=== PATIENT | male | born 1965 | race Caucasian/White ===

== ENCOUNTER 2018-12-08 18:05 | Inpatient (IN) | payer MEDICAID ==
[~2018-12-08] VITALS: Ht 181.6 cm; Wt 82.6 kg
[~2018-12-08 18:05] MED LIST: IBUP-2213 PO
[2018-12-08 18:24] VITALS: BP 144/78
--- NOTE | 2018-12-08 18:26 | NUR ---
PT TO [facility]. VSS. [id number].
[2018-12-08 20:08] LABS: BASOPHILS % (AUTO) 0.3 % (0.0-2.0); EOSINOPHILS # (AUTO) 0.1 K/uL (0-0.4); EOSINOPHILS % (AUTO) 0.6 % (0.0-4.0); HEMATOCRIT 45.5 % (36-52); HEMOGLOBIN 15.7 g/dL (12.0-18.0); LYMPHOCYTES # (AUTO) 1.3 K/uL (2.0-11.5); MEAN CORPUSCULAR HEMOGLOBIN 31 pg (27-31); MEAN CORPUSCULAR HGB CONC 35 g/dL (33-37); MEAN CORPUSCULAR VOLUME 90.2 fL (80-94); MONOCYTES % (AUTO) 8.5 % (1.7-9.3); NEUTROPHILS # (AUTO) 9.4 K/uL (1.8-7.7); NEUTROPHILS % (AUTO) 79.6 % (42.2-75.2); PLATELET COUNT (AUTO) 328 K/uL (140-450); RED BLOOD CELL COUNT(AUTO) 5.04 MIL/uL (4.20-6.10); RED CELL DISTRIBUTION WIDTH 13.1 % (11.6-13.7); WHITE BLOOD COUNT (AUTO) 11.8 K/uL (4.8-10.8)
[2018-12-08 20:09] LABS: APPEARANCE,URINE HAZY (CLEAR); BILIRUBIN,URINE NEGATIVE (NEGATIVE); BLOOD, URINE NEGATIVE (NEGATIVE); COLOR,URINE YELLOW (YELLOW); LEUKOCYTE ESTERASE ,URINE NEGATIVE (NEGATIVE); NITRITE, URINE NEGATIVE (NEGATIVE); UGLUCOSE NEGATIVE (NEGATIVE)
[2018-12-08 20:49] LABS: ANION GAP 12.2 (8-16); CARBON DIOXIDE 28.2 mmol/L (21-32); POTASSIUM 4.4 mmol/L (3.5-5.1)
[2018-12-08 20:50] LABS: CREATININE 0.9 mg/dL (0.7-1.3); TOTAL BILIRUBIN 0.6 mg/dL (0.0-1.0)
--- NOTE | 2018-12-08 23:09 | NUR ---
PT AMBULATED TO BED 04 WITH STEADY GAIT. SON ACCOMPANYING.
[2018-12-08] MEDS ORDERED: MORPHINE SULFATE 4 MG/ML SYR IVP ONE (23:35)
[2018-12-08] MEDS ORDERED: ONDANSETRON 4 MG/2 ML VIAL IVP ONE (23:35)
[2018-12-08] MEDS ORDERED: PIPERACILLIN/TAZOBACTAM 4.5 GM in DEXTROSE 5% 100 ML IV ONE (23:35)
[2018-12-08] MEDS ORDERED: NACL 0.9% 1,000 ML IV ONE (23:35)
[2018-12-08] MEDS ORDERED: DEXT 5% / NACL 0.45% 1,000 ML IV SCH (23:41)
[2018-12-08] MEDS ORDERED: DOCUSATE SODIUM 100 MG GELCAP PO PRN (23:45)
[2018-12-08] MEDS ORDERED: ONDANSETRON 4 MG/2 ML VIAL IM/IVP PRN (23:45)
[2018-12-08] MEDS ORDERED: LORazepam 2 MG/ML VIAL IM/IVP PRN (23:45)
[2018-12-08] MEDS ORDERED: FAMOTIDINE 20 MG/2 ML VIAL IV PRN (23:45)
--- NOTE | 2018-12-08 23:53 | NUR ---
53 Y/O MALE C/O EPIGASTRIC PAIN RADIATING TO RIGHT SIDE OF BACK X TUESDAY. PAIN 11/25. DENIES DYSURIA. PATIETN STATES PAIN INCREASES AFTER EATING. PMH- DENIES
[2018-12-09] MEDS ORDERED: PIPERACILLIN/TAZOBACTAM 2.25 GM VIAL IV ONE (00:18)
[2018-12-09] MEDS ORDERED: DEXT 5% / NACL 0.9% 500 ML IV SCH (00:25)
[2018-12-09 00:51] LABS: PROTHROMBIN TIME 10.3 secs (10.8-13.4)
[2018-12-09 00:58] LABS: CHOL/HDL RATIO 4.1 (1-4.5); FREE T4 (FREE THYROXINE) 1.01 ng/dL (0.76-1.46); MAGNESIUM 2.7 mg/dL (1.8-2.4); PHOSPHORUS 3.3 mg/dL (2.5-4.9); THYROID STIMULATING HORMONE 0.64 uIU/mL (0.34-3.74)
--- NOTE | 2018-12-09 01:05 | NUR ---
Patient will be admitted to care of [facility]. Admited to TELE. Will go to room 119 A. Belongings list completed. Report to DANIEL FAM.
[2018-12-09 01:30] VITALS: BP 120/82
--- NOTE | 2018-12-09 01:30 | NUR ---
RECIEVED PT AAOX4 /WHEELCHAIR FROM ER , NID , IV SITE INTACT AND PATENT , AMBULATES TO BED , ADMISSION ASSESSMENT DODE , MRSA SPECIMEN COLLECTED AND SENT TO LAB . PUT ON SAFETY PRECAUTION PROTOCOL . PLAN OF CARE DISCUSSED AND VERBALIZE UNDERSTANDING , CALL LIGHT WITHIN REACH , WILL CONT. TO MONITOR - ON NPO .
[2018-12-09 04:00] VITALS: BP 120/74
--- NOTE | 2018-12-09 04:00 | NUR ---
MADE ROUNDS , BEARABLE PAIN HE SAID AT THIS TIME , CALL LIGHT WITHIN REACH , WILL CO0NT. TO MONITOR.
[2018-12-09] MEDS: DEXT 5% / NACL 0.9% 1,000 ML IV SCH (04:19)
[2018-12-09] MEDS ORDERED: PIPERACILLIN/TAZOBACTAM 3.375 GM VIAL IV ONE (05:28)
[2018-12-09] MEDS: PIPERACILLIN/TAZOBACTAM 3.375 GM in DEXTROSE 5% 50 ML IV SCH ×3 (05:33→17:48)
--- NOTE | 2018-12-09 06:03 | NUR ---
C/O PAIN - WILL MEDICATE ORDERED.
[2018-12-09] MEDS: HYDROcodone/APAP 7.5/325 MG 1 TAB PO PRN (06:05)
[2018-12-09 06:19] LABS: BARBITURATE, URINE NEG. ng/ml (NEG <=200); BENZODIAZEPINE, URINE NEG. ng/mL (NEG <=200); CANNABINOID, URINE NEG. ng/mL (NEG <=50); COCAINE, URINE NEG. ng/mL (NEG <=300); OPIATE, URINE NEG. ng/mL (NEG <=2000); PHENCYCLIDINE SCREEN,URINE NEG. ng/mL (NEG <=25)
--- NOTE | 2018-12-09 07:15 | NUR ---
RECEIVED BEDSIDE REPORT FROM TEST ENGINE MECHANIC NURSE. PT IS AWAKE AND ALERT, NO S/S OF ANY ACUTE DISTRESS NOTED. PT IS ON ROOM AIR, SKIN INTACT. IV SITE NOTED ON THE R AC 20 G, INFUSING D5NS 100 ML/HR. PT IS CURRENTLY NPO FOR HIDA SCAN. CALL LIGHT IS WITHIN REACH, WILL CONTINUE TO MONITOR.
--- NOTE | 2018-12-09 07:25 | NUR ---
THE TECH. WHO WILL DO THE HIDA OF GALLBLADDER CALLED VIA PHONE HE SAID PUT PT. ON TOTALLY NPO AND DON'T GIVE ANY KIND OF OPIATES , GIVE THE THE MORPHINE TIV PRN FOR PAIN 2HRS POST HIDA WAIT MY CALL FIRST. - THE AM NURSE INFORMED AND THE LIZET INFORMED.ENDORSED TO AM NURSE FOR CONT. OF CARE.
[2018-12-09 07:45] LABS: BASOPHILS % (AUTO) 0.2 % (0.0-2.0); EOSINOPHILS # (AUTO) 0.1 K/uL (0-0.4); HEMATOCRIT 40.4 % (36-52); LYMPHOCYTES # (AUTO) 1.3 K/uL (2.0-11.5); LYMPHOCYTES % (AUTO) 12.4 % (20.5-51.1); MEAN CORPUSCULAR HEMOGLOBIN 31 pg (27-31); MEAN CORPUSCULAR HGB CONC 35 g/dL (33-37); MEAN CORPUSCULAR VOLUME 90.9 fL (80-94); MONOCYTES # (AUTO) 1.1 K/uL (0.8-1.0); MONOCYTES % (AUTO) 10.5 % (1.7-9.3); NEUTROPHILS # (AUTO) 7.9 K/uL (1.8-7.7); NEUTROPHILS % (AUTO) 75.9 % (42.2-75.2); PLATELET COUNT (AUTO) 284 K/uL (140-450); RED BLOOD CELL COUNT(AUTO) 4.44 MIL/uL (4.20-6.10); RED CELL DISTRIBUTION WIDTH 12.8 % (11.6-13.7); WHITE BLOOD COUNT (AUTO) 10.4 K/uL (4.8-10.8)
[2018-12-09 08:00] VITALS: BP 111/61
[2018-12-09 08:21] LABS: CREATININE 0.9 mg/dL (0.7-1.3)
[2018-12-09] MEDS: LACTOBACILLUS RHAMNOSUS GG 1 EACH CAP PO SCH (08:53)
--- NOTE | 2018-12-09 09:35 | NUR ---
PT IS SLEEPING COMFORTABLY, NO S/S OF ANY ACUTE DISTRESS.
[2018-12-09 12:00] VITALS: BP 119/72
--- NOTE | 2018-12-09 12:20 | NUR ---
PT TAKEN OFF UNIT FOR HIDA SCAN
--- NOTE | 2018-12-09 13:17 | NUR ---
GOT A CALL FROM NUCLEAR MEDICINE, PT NEEDS 2 MG MORPHINE IV INJECTION TO VISUALIZE THE GALLBLADDER ON HIDA SCAN. DR GAMBOA NOTIFIED
--- NOTE | 2018-12-09 13:30 | NUR ---
PT WAS GIVEN 2 MG MORPHINE IV FOR HIDA SCAN
--- NOTE | 2018-12-09 14:14 | NUR ---
PATIENT HAS BEEN SCREENED AND CATEGORIZED HIGH NUTRITION RISK. PATIENT WILL BE SEEN WITHIN 1-2 DAYS OF ADMISSION. 12/09/18 - 12/10/18 ADAMARIS STEVENSON MBA, RD
--- NOTE | 2018-12-09 14:39 | NUR ---
PT IS BACK FROM HIDA SCAN
--- NOTE | 2018-12-09 14:50 | NUR ---
CONSENT OBTAINED FOR LAPAROSCOPIC POSSIBLE OPEN CHOLECYSTECTOMY. PT'S FAMILY VISITING AT BEDSIDE.
[2018-12-09] MEDS ORDERED: MORPHINE SULFATE 2 MG/ML SYR IVP SCH (15:01)
[2018-12-09 16:00] VITALS: BP 139/78
--- NOTE | 2018-12-09 17:30 | NUR ---
12/09/18 RD INITIAL ASSESSMENT COMPLETED PLEASE REFER TO NUTRITION ASSESSMENT UNDER CARE ACTIVITY FOR ESTIMATED NUTRITIONAL NEEDS. RD RECOMMENDATIONS: 1. RECOMMEND CONTINUE NPO. 2. WHEN MEDICALLY CLEARED FOR PO DIET, START REGULAR DIET. 3. RD MPNITOR BLOOD GLUCOSE LEVELS / ? NEED FOR CCHO DIET 4. F/U 3-5 DAYS; MODERATE RISK ADAMARIS STEVENSON MBA, RD
[2018-12-09] MEDS: MORPHINE SULFATE 2 MG/ML SYR IVP PRN ×2 (17:49→20:28)
--- NOTE | 2018-12-09 19:20 | NUR ---
PT ENDORSED TO CABINET MOUNTER NURSE IN STABLE CONDITION.
--- NOTE | 2018-12-09 19:21 | NUR ---
RECEIVED BEDSIDE REPORT FROM AM NURSE. PT IS AWAKE AND ALERT, NO S/S OF ANY ACUTE DISTRESS NOTED. PT AMBULATORY, SKIN INTACT. IV SITE NOTED ON THE R AC 20 G, INFUSING D5NS 100 ML/HR. PT IS CURRENTLY NPO. CALL LIGHT IS WITHIN REACH, WILL CONTINUE TO MONITOR.
[2018-12-09 20:00] VITALS: BP 129/79
--- NOTE | 2018-12-09 20:00 | NUR ---
DR. MAR AT BEDSIDE, INTERVIEWED PT, AND EXPLAINED THE OPERATION TO BE DONE. ANOTHER CONSENT OBTAINED DONE BY DR. MAR.
--- NOTE | 2018-12-09 20:28 | NUR ---
PT C/O 9/10 PAIN ON THE RIGHT ABDOMINAL AREA, MORPHINE GIVEN
[2018-12-10] VITALS: BP 110/56
[2018-12-10] MEDS: PIPERACILLIN/TAZOBACTAM 3.375 GM in DEXTROSE 5% 50 ML IV SCH ×4 (00:26→18:20)
[2018-12-10] MEDS: MORPHINE SULFATE 2 MG/ML SYR IVP PRN ×3 (00:45→19:44)
--- NOTE | 2018-12-10 00:45 | NUR ---
PT AGAIN C/O 9/10 PAIN ON THE RIGHT ABDOMINAL AREA, MORPHINE GIVEN
--- NOTE | 2018-12-10 02:57 | NUR ---
PT SLEEPING AT THIS TIME. SIGNS AND SYMPTOMS OF PAIN, WILL CONTINUE TO MONITOR
[2018-12-10 03:45] VITALS: BP 133/74
--- NOTE | 2018-12-10 06:46 | NUR ---
PT ALERT, ORIENTED X 4; AMBULATORY; PT AWAITING OR TO PISCK HIM FOR CHOLECYSTECTOMY AT 0830; PRE-OP DONE, WILL ENDORSE TO NEXT SHIFT
--- NOTE | 2018-12-10 07:15 | NUR ---
RECEIVED BEDSIDE REPORT FROM CRYPTOGRAPHY TEACHER NURSE. PT IS AWAKE AND ALERT, NO S/S OF ANY ACUTE DISTRESS. PT ON ROOM AIR, SKIN INTACT. IV SITE INTACT ON THE R AC, 20 G, CURRENTLY SALINE LOCKED. PT IS SCHEDULED FOR CHOLECYSTECTOMY THIS MORNING, CONSENT HAS BEEN OBTAINED AND PREOP CHECKLIST WAS DONE. PT IS NPO FOR THE PROCEDURE. CALL LIGHT IS WITHIN REACH, WILL CONTINUE TO MONITOR.
[2018-12-10 07:51] VITALS: BP 135/79
[2018-12-10] MEDS: LACTOBACILLUS RHAMNOSUS GG 1 EACH CAP PO SCH (08:00)
--- NOTE | 2018-12-10 08:05 | NUR ---
ADMINISTERED ORDERED PROBIOTIC. PT TOLERATED WELL. WAITING FOR OR TO EXPLOSIVE MAN PT.
[2018-12-10 08:07] LABS: BASOPHILS % (AUTO) 0.5 % (0.0-2.0); EOSINOPHILS # (AUTO) 0.1 K/uL (0-0.4); EOSINOPHILS % (AUTO) 1.4 % (0.0-4.0); HEMATOCRIT 41.6 % (36-52); HEMOGLOBIN 14.1 g/dL (12.0-18.0); LYMPHOCYTES # (AUTO) 1.6 K/uL (2.0-11.5); LYMPHOCYTES % (AUTO) 17.7 % (20.5-51.1); MEAN CORPUSCULAR HEMOGLOBIN 31 pg (27-31); MEAN CORPUSCULAR HGB CONC 34 g/dL (33-37); MEAN CORPUSCULAR VOLUME 91.1 fL (80-94); MONOCYTES % (AUTO) 10.9 % (1.7-9.3); NEUTROPHILS # (AUTO) 6.1 K/uL (1.8-7.7); NEUTROPHILS % (AUTO) 69.5 % (42.2-75.2); PLATELET COUNT (AUTO) 295 K/uL (140-450); RED BLOOD CELL COUNT(AUTO) 4.57 MIL/uL (4.20-6.10); RED CELL DISTRIBUTION WIDTH 12.5 % (11.6-13.7); WHITE BLOOD COUNT (AUTO) 8.8 K/uL (4.8-10.8)
--- NOTE | 2018-12-10 08:30 | NUR ---
PT TAKEN OFF UNIT FOR SURGERY
[2018-12-10 08:35] LABS: ANION GAP 14.1 (8-16); CARBON DIOXIDE 26.2 mmol/L (21-32); CREATININE 0.8 mg/dL (0.7-1.3); POTASSIUM 4.3 mmol/L (3.5-5.1)
[2018-12-10] MEDS ORDERED: NEOSTIGMINE 1:1000 10 MG/10 ML VIAL ONE (08:35)
[2018-12-10] MEDS ORDERED: ROCURONIUM 50 MG/5 ML VIAL IV ONE (08:35)
[2018-12-10] MEDS ORDERED: ONDANSETRON 4 MG/2 ML VIAL ONE (08:35)
[2018-12-10] MEDS ORDERED: LABETALOL 100 MG/20 ML VIAL ONE (08:35)
[2018-12-10] MEDS ORDERED: DESFLURANE 240 ML BTL INH ONE (08:35)
[2018-12-10] MEDS ORDERED: SUCCINYLCHOLINE CHLORIDE 200 MG/10 ML VIAL IVP ONE (08:35)
[2018-12-10] MEDS ORDERED: PROPOFOL 200 MG/20 ML VIAL IV ONE (08:35)
[2018-12-10] MEDS ORDERED: KETOROLAC 30 MG/ML VIAL ONE (08:35)
[2018-12-10] MEDS ORDERED: GLYCOPYRROLATE 0.2 MG/ML VIAL ONE (08:35)
[2018-12-10] MEDS ORDERED: DEXAMETHASONE 4 MG/ML VIAL ONE (08:35)
[2018-12-10] MEDS ORDERED: HYDROmorphone PFS 2 MG/ML SYR ONE (08:49)
[2018-12-10] MEDS ORDERED: fentaNYL 0.05 MG/ML VIAL ONE (08:49)
[2018-12-10] MEDS: BUPIVACAINE-MPF 0.25% 30 ML VIAL INJ ONE ×2 (09:15→11:15)
[2018-12-10] MEDS: DEXT 5% / NACL 0.9% 1,000 ML IV SCH (10:25)
[2018-12-10] MEDS ORDERED: ONDANSETRON 4 MG/2 ML VIAL IVP PRN (11:05)
[2018-12-10] MEDS ORDERED: HYDROmorphone 1 MG/ML AMP IVP PRN (11:05)
[2018-12-10 11:35] LABS: ANION GAP 13.1 (8-16); CARBON DIOXIDE 25.4 mmol/L (21-32); CREATININE 0.8 mg/dL (0.7-1.3); POTASSIUM 4.5 mmol/L (3.5-5.1)
[2018-12-10 11:40] LABS: BASOPHILS % (AUTO) 0.1 % (0.0-2.0); EOSINOPHILS % (AUTO) 0.3 % (0.0-4.0); HEMOGLOBIN 13.7 g/dL (12.0-18.0); LYMPHOCYTES # (AUTO) 0.9 K/uL (2.0-11.5); LYMPHOCYTES % (AUTO) 6.8 % (20.5-51.1); MEAN CORPUSCULAR HEMOGLOBIN 31 pg (27-31); MEAN CORPUSCULAR HGB CONC 34 g/dL (33-37); MONOCYTES # (AUTO) 0.3 K/uL (0.8-1.0); MONOCYTES % (AUTO) 2.5 % (1.7-9.3); NEUTROPHILS % (AUTO) 90.3 % (42.2-75.2); PLATELET COUNT (AUTO) 297 K/uL (140-450); RED CELL DISTRIBUTION WIDTH 12.9 % (11.6-13.7); WHITE BLOOD COUNT (AUTO) 13.3 K/uL (4.8-10.8)
[2018-12-10 11:42] LABS: TOTAL BILIRUBIN 0.7 mg/dL (0.0-1.0)
--- NOTE | 2018-12-10 11:51 | NUR ---
PT IS BACK FROM SURGERY Addendum: 12/10/18 at 1201 by Ene Corrales RN VS STABLE: BP 112/73, HR 62, O2 97%, TEMP 97.4, RR 18. FAMILY VISITING AT BEDSIDE.
[2018-12-10 12:00] VITALS: BP 112/73
--- NOTE | 2018-12-10 12:30 | NUR ---
PT ATE ABOUT 85% OF HIS CLEAR LIQUID LUNCH, TOLERATED IT WELL.
--- NOTE | 2018-12-10 12:32 | NUR ---
CALLED DR MAR TO REPORT LABS REQUESTED .
--- NOTE | 2018-12-10 13:30 | NUR ---
PT IS SLEEPING COMFORTABLY AT THIS TIME. 4 ABD INCISION DRESSINGS ARE DRY AND INTACT, LEELA DRAIN DRAINING PINK FLUID.
[2018-12-10] MEDS: NACL 0.9% 1,000 ML IV SCH (14:38)
--- NOTE | 2018-12-10 15:53 | NUR ---
FAMILY VISITING PT AT BEDSIDE.
[2018-12-10 16:00] VITALS: BP 116/65
--- NOTE | 2018-12-10 18:55 | NUR ---
EMPTIED 40 ML FROM PT'S LEELA DRAIN. PT GOT UP AND WALKED TO THE BATHROOM WITHOUT ISSUES. C/O PAIN WHEN GOT BACK INTO BED. WILL ENDORSE TO SHUTTLECOCK FEATHER TRIMMER NURSE TO GIVE PAIN MEDICINE.
--- NOTE | 2018-12-10 19:15 | NUR ---
PT ENDORSED TO CHRONOMETER REPAIRER NURSE IN STABLE CONDITION.
--- NOTE | 2018-12-10 19:16 | NUR ---
RECEIVED BEDSIDE REPORT FROM DAY SHIFT NURSE BONNIE RN, PT STABLE, NO DISTRESS NOTED, IV TO R AC 20G PATENT, INTACT INFUSING WELL, PT ON ROOM AIR , NO SOB NOTED, PT HAD JUST AMBULATED TO RESTROOM AND BACK TO BED ASSISTED BY FAMILY, PT STATED HAVING PAIN, /, WILL GIVE PAIN MEDICATION, DRESSINGS INTACT, LEELA DRAIN IN PLACE DRAINING SANGUINOUS FLUID, INITIAL ASSESSMENT DONE, ALL SAFETY PRECAUTION MET, CALL LIGHT WITHIN REACH, WILL CONTINUE TO MONITOR.
--- NOTE | 2018-12-10 19:44 | NUR ---
PAIN MEDICATION ADMINISTERED, FOR PAIN OF 10/10 TO THE ABD, PT TOLERATED WELL, NO DISTRESS NOTED, CALL LIGHT WITHIN REACH, WILL CONTINUE TO MONITOR.
--- NOTE | 2018-12-10 21:00 | NUR ---
HEPARIN DUE HELD, PT S/P LISA UNGER, NOTIFIED DR. MALACHI DR. STATED UNDERSTANDING, PT RESTING, NO DISTRESS NOTED, CALL LIGHT WITHIN REACH, WILL CONTINUE TO MONITOR.
[2018-12-11 00:05] VITALS: BP 127/69
[2018-12-11] MEDS: PIPERACILLIN/TAZOBACTAM 3.375 GM in DEXTROSE 5% 50 ML IV SCH ×4 (00:05→17:34)
[2018-12-11] MEDS: MORPHINE SULFATE 2 MG/ML SYR IVP PRN ×3 (00:05→20:40)
--- NOTE | 2018-12-11 00:05 | NUR ---
DUE MEDICATION ADMINISTERED, PT C/O PAIN, PAIN MEDICATION ORDERED ADMINISTERED, PT TOLERATED WELL, NO DISTRESS NOTED, CALL LIGHT WITHIN REACH, WILL CONTINUE TO MONITOR.
[2018-12-11] MEDS: ACETAMINOPHEN 325 MG TAB PO PRN ×2 (04:30→20:37)
--- NOTE | 2018-12-11 04:30 | NUR ---
PT C/O OF PAIN TO THE ABD, PAIN MEDICATION ADMINISTERED, PER PT MEDICATION MORPHINE DID NOT HELP HIS HEADACHE EARLIER AND PT REQUESTED OTHER MEDICATION, TYLENOL ORDERED ADMINISTERED, PT TOLERATED WELL, NO DISTRESS NOTED, CALL LIGHT WITHIN REACH, WILL CONTINUE TO MONITOR.
[2018-12-11] MEDS: NACL 0.9% 1,000 ML IV SCH ×2 (05:13→17:17)
--- NOTE | 2018-12-11 05:14 | NUR ---
DUE MEDICATION ADMINISTERED, PT TOLERATED WELL, NO DISTRESS NOTED, CALL LIGHT WITHIN REACH, WILL CONTINUE TO MONITOR.
[2018-12-11 06:38] LABS: ANION GAP 14.8 (8-16); CARBON DIOXIDE 25.3 mmol/L (21-32); CREATININE 0.9 mg/dL (0.7-1.3); POTASSIUM 4.1 mmol/L (3.5-5.1); TOTAL BILIRUBIN 1.2 mg/dL (0.0-1.0)
--- NOTE | 2018-12-11 07:23 | NUR ---
ENDORSED PT TO DAY SHIFT NURSE HUSSEIN SANCHEZ, PT STABLE, NO DISTRESS NOTED, CALL LIGHT WITHIN REACH.
--- NOTE | 2018-12-11 07:24 | NUR ---
RECEIVED REPORT FROM BINDERY ASSISTANT NURSE NITISH FOR CONTINUITY OF CARE. PT IN STABLE CONDITION. RESPIRATIONS EVEN AND UNLABORED. IV INTACT AND PATENT. SAFETY MEASURES IN PLACE. BED IN LOW POSITION. CALL LIGHT AT BEDSIDE. WILL CONTINUE TO MONITOR.
[2018-12-11 08:00] VITALS: BP 131/77
[2018-12-11] MEDS ORDERED: MORPHINE SULFATE 2 MG/ML SYR IVP PRN (08:30)
[2018-12-11] MEDS: DOCUSATE SODIUM 100 MG GELCAP PO SCH ×2 (08:43→20:37)
[2018-12-11] MEDS: LACTOBACILLUS RHAMNOSUS GG 1 EACH CAP PO SCH (08:43)
[2018-12-11 08:46] LABS: BASOPHILS % (AUTO) 0.2 % (0.0-2.0); EOSINOPHILS % (AUTO) 0.1 % (0.0-4.0); HEMATOCRIT 39.2 % (36-52); HEMOGLOBIN 13.5 g/dL (12.0-18.0); LYMPHOCYTES # (AUTO) 1.4 K/uL (2.0-11.5); LYMPHOCYTES % (AUTO) 10.6 % (20.5-51.1); MEAN CORPUSCULAR HEMOGLOBIN 32 pg (27-31); MEAN CORPUSCULAR HGB CONC 35 g/dL (33-37); MEAN CORPUSCULAR VOLUME 91.4 fL (80-94); MONOCYTES # (AUTO) 1.3 K/uL (0.8-1.0); MONOCYTES % (AUTO) 9.8 % (1.7-9.3); NEUTROPHILS # (AUTO) 10.2 K/uL (1.8-7.7); NEUTROPHILS % (AUTO) 79.3 % (42.2-75.2); PLATELET COUNT (AUTO) 308 K/uL (140-450); RED BLOOD CELL COUNT(AUTO) 4.29 MIL/uL (4.20-6.10); RED CELL DISTRIBUTION WIDTH 12.7 % (11.6-13.7); WHITE BLOOD COUNT (AUTO) 12.9 K/uL (4.8-10.8)
[2018-12-11] MEDS ORDERED: SIMETHICONE 80 MG TAB.CHEW PO SCH (09:00)
--- NOTE | 2018-12-11 09:05 | NUR ---
GAVE ORDERED DUE MEDICATION AND STAND BY ASSIST TO RESTROOM. PT TOLERATED WELL. PT IN STABLE CONDITION.
--- NOTE | 2018-12-11 11:02 | NUR ---
RAJNI LIMA CALLED TO INQUIRE PT LABS AND SPEAK TO RESIDENT COOPER CHONG.
--- NOTE | 2018-12-11 12:04 | NUR ---
PT LYING IN BED IN STABLE CONDITION. FAMILY AT BEDSIDE. WILL CONTINUE TO MONITOR. BED IN LOW POSITION. CALL LIGHT AT BEDSIDE.
[2018-12-11] MEDS: ALUMINUM HYD/MAG/SIMETHICONE 30 ML UDC PO SCH ×2 (12:33→17:33)
[2018-12-11] MEDS: SENNA 8.6 MG TAB PO SCH ×2 (12:33→17:18)
--- NOTE | 2018-12-11 14:25 | NUR ---
STAND BY ASSIST TO RESTROOM. PT TOLERATED WELL. WILL CONTINUE TO MONITOR. BED IN LOW POSITION. CALL LIGHT AT BEDSIDE.
--- NOTE | 2018-12-11 17:55 | NUR ---
SIGNED ERCP CONSENT AT THIS TIME.
--- NOTE | 2018-12-11 19:25 | NUR ---
GAVE REPORT TO CAR BODY MECHANIC NURSE GHULAM FOR CONTINUITY OF CARE. PT IN STABLE CONDITION.
--- NOTE | 2018-12-11 19:26 | NUR ---
RECEIVED BEDSIDE REPORT FROM DAY SHIFT NURSE HUSSEIN RN, FAMILY AT BEDSIDE. PT STABLE, NO DISTRESS NOTED, IV SITE ON RAC 20G PATENT, INTACT. BREATHING EVEN AND UNLABORED ON ROOM AIR PT STATED HAVING PAIN, 11/25, WILL GIVE PAIN MEDICATION, DRESSINGS INTACT, LEELA DRAIN IN PLACE DRAINING SANGUINOUS FLUID, INITIAL ASSESSMENT DONE, ALL SAFETY PRECAUTION MET, CALL LIGHT WITHIN REACH, WILL CONTINUE TO MONITOR.
--- NOTE | 2018-12-11 20:40 | NUR ---
GIVEN HEPARIN AND COLACE MD ORDERED. PT C/O INCISION PAIN 8/10, GIVEN MORPHINE AND TYLENOL MD ORDERED. PT TOLERATED WELL.
[2018-12-12] VITALS: BP 118/76
--- NOTE | 2018-12-12 00:05 | NUR ---
VS CHECKED, WITHIN PT'S BASELINE. WILL CONTINUE TO MONITOR.
[2018-12-12] MEDS: PIPERACILLIN/TAZOBACTAM 3.375 GM in DEXTROSE 5% 50 ML IV SCH ×4 (00:15→17:19)
--- NOTE | 2018-12-12 00:15 | NUR ---
GIVEN ZOSYN, PT TOLERATED WELL.
[2018-12-12] MEDS: NACL 0.9% 1,000 ML IV SCH ×3 (00:19→15:55)
[2018-12-12] MEDS: ACETAMINOPHEN 325 MG TAB PO PRN (02:32)
[2018-12-12] MEDS: MORPHINE SULFATE 2 MG/ML SYR IVP PRN ×3 (02:32→21:26)
--- NOTE | 2018-12-12 02:32 | NUR ---
PT C/O INCISION PAIN 11/25, GIVEN MORPHINE AND TYLENOL MD ORDERED. PT TOLERATED WELL.
--- NOTE | 2018-12-12 04:00 | NUR ---
PT SLEEPING IN BED. BREATHING EVEN AND UNLABORED. BED IN LOW POSITION, CALL LIGHT WITHIN REACH.
--- NOTE | 2018-12-12 05:45 | NUR ---
GIVEN CODY MCRAE. PT SLEEPING COMFORTABLY. BED IN LOW POSITION,. CALL LIGHT WITHIN REACH. Addendum: 12/12/18 at 0627 by Braulio Conrad RN LEELA DRAINAGE 30ML NOTED.
[2018-12-12 06:09] LABS: PROTHROMBIN TIME 11.6 secs (10.8-13.4)
[2018-12-12 06:27] LABS: CARBON DIOXIDE 26.8 mmol/L (21-32); CREATININE 0.8 mg/dL (0.7-1.3); POTASSIUM 3.8 mmol/L (3.5-5.1)
[2018-12-12 06:33] LABS: PHOSPHORUS 3.2 mg/dL (2.5-4.9)
[2018-12-12 07:22] LABS: BASOPHILS # (AUTO) 0.1 K/uL (0.00-0.22); BASOPHILS % (AUTO) 0.6 % (0.0-2.0); EOSINOPHILS # (AUTO) 0.2 K/uL (0-0.4); EOSINOPHILS % (AUTO) 1.9 % (0.0-4.0); HEMATOCRIT 38.2 % (36-52); HEMOGLOBIN 12.8 g/dL (12.0-18.0); LYMPHOCYTES # (AUTO) 1.5 K/uL (2.0-11.5); LYMPHOCYTES % (AUTO) 16.2 % (20.5-51.1); MEAN CORPUSCULAR HEMOGLOBIN 31 pg (27-31); MEAN CORPUSCULAR HGB CONC 34 g/dL (33-37); MEAN CORPUSCULAR VOLUME 92.6 fL (80-94); MONOCYTES # (AUTO) 0.9 K/uL (0.8-1.0); MONOCYTES % (AUTO) 10.1 % (1.7-9.3); NEUTROPHILS # (AUTO) 6.5 K/uL (1.8-7.7); NEUTROPHILS % (AUTO) 71.2 % (42.2-75.2); PLATELET COUNT (AUTO) 284 K/uL (140-450); RED BLOOD CELL COUNT(AUTO) 4.13 MIL/uL (4.20-6.10); RED CELL DISTRIBUTION WIDTH 12.7 % (11.6-13.7); WHITE BLOOD COUNT (AUTO) 9.2 K/uL (4.8-10.8)
--- NOTE | 2018-12-12 07:25 | NUR ---
RECEIVED REPORT FROM EARTH AUGER OPERATOR NURSE. PATIENT SITTING DOWN IN BED. NO DISTRESS NOTED. DENIES ANY PAIN. AAOX4, CALM, COOPERATIVE, SKIN COLOR APPROPRIATE TO ETHNICITY, WARM TO TOUCH. HAS 4 ABD INCISIONS S/P LAP CORNEL ON 12/11/18. DRESSING DRY AND INTACT. LEELA DRAIN ON RIGHT ABD SIDE, <5 ML SANGUINOUS DRAINAGE NOTED AT THIS TIME. REVIEWED PLAN OF CARE WITH PATIENT. PATIENT VERBALIZED UNDERSTANDING. SAFETY MEASURES IN PLACE, CALL LIGHT WITHIN REACH. WILL CONTINUE TO MONITOR.
--- NOTE | 2018-12-12 07:42 | NUR ---
Late entry. Confirmed with RN that Zosyn IVPB completed at 0120 and 0.9 NS 1000ml IV completed at 0125
[2018-12-12 08:00] VITALS: BP 129/78
[2018-12-12] MEDS ORDERED: DEXAMETHASONE 4 MG/ML VIAL ONE (08:35)
[2018-12-12] MEDS ORDERED: ROCURONIUM 50 MG/5 ML VIAL IV ONE (08:35)
[2018-12-12] MEDS ORDERED: PROPOFOL 200 MG/20 ML VIAL IV ONE (08:35)
[2018-12-12] MEDS ORDERED: DESFLURANE 240 ML BTL INH ONE (08:35)
[2018-12-12] MEDS ORDERED: ONDANSETRON 4 MG/2 ML VIAL ONE (08:35)
[2018-12-12] MEDS ORDERED: SUCCINYLCHOLINE CHLORIDE 200 MG/10 ML VIAL IVP ONE (08:35)
[2018-12-12] MEDS ORDERED: LABETALOL 100 MG/20 ML VIAL ONE (08:35)
[2018-12-12] MEDS ORDERED: NEOSTIGMINE 1:1000 10 MG/10 ML VIAL ONE (08:35)
[2018-12-12] MEDS ORDERED: KETOROLAC 30 MG/ML VIAL ONE (08:35)
[2018-12-12] MEDS ORDERED: GLYCOPYRROLATE 0.2 MG/ML VIAL ONE (08:35)
[2018-12-12] MEDS: LACTOBACILLUS RHAMNOSUS GG 1 EACH CAP PO SCH (09:28)
[2018-12-12] MEDS: DOCUSATE SODIUM 100 MG GELCAP PO SCH ×2 (09:29→21:22)
[2018-12-12] MEDS: ALUMINUM HYD/MAG/SIMETHICONE 30 ML UDC PO SCH ×3 (09:29→17:19)
[2018-12-12] MEDS: SENNA 8.6 MG TAB PO SCH ×3 (09:29→17:19)
--- NOTE | 2018-12-12 09:35 | NUR ---
PATIENT SITTING DOWN IN BED WITH COMPLAINTS OF ABD PAIN. MORPHINE GIVEN AT THIS TIME. OTHER SCHEDULED MEDICATIONS DUE GIVEN. HEPARIN SUBQ NOT GIVEN AT THIS TIME D/T SCHEDULED ERCP LATER TODAY. WILL CONTINUE TO MONITOR.
--- NOTE | 2018-12-12 11:00 | NUR ---
PATIENT AMBULATED TO BATHROOM AND BACK TO BED. CONDITION UNCHANGED. WILL CONTINUE TO MONITOR.
[2018-12-12] MEDS: HYDROcodone/APAP 7.5/325 MG 1 TAB PO PRN (14:01)
--- NOTE | 2018-12-12 14:04 | NUR ---
PATIENT AMBULATED TO BATHROOM AND BACK TO BED. COMPLAINS OF ABD PAIN. NORCO GIVEN AT THIS TIME. SCHEDULED MEDICATIONS DUE GIVEN. WILL CONTINUE TO MONITOR.
[2018-12-12 14:10] LABS: ALBUMIN 2.7 g/dL (3.4-5.0); BILIRUBIN,DIRECT 0.3 mg/dL (0.0-0.3)
--- NOTE | 2018-12-12 14:30 | NUR ---
OR NURSES ON UNIT TO TAKE PATIENT FOR ERCP. WILL CONTINUE TO MONITOR WHEN PATIENT RETURNS ON UNIT.
[2018-12-12] MEDS ORDERED: MIDAZOLAM 2 MG/2 ML VIAL ONE (14:46)
[2018-12-12] MEDS ORDERED: fentaNYL 0.05 MG/ML VIAL ONE (14:47)
[2018-12-12 16:00] VITALS: BP 136/77
--- NOTE | 2018-12-12 17:02 | NUR ---
CALLED ISABELA CALLED. PER DR. MAR CANCEL HIDA SCAN SINCE DR. MENJIVAR IS GOING TO PERFORM ERCP TOMORROW AT 12 PM NOON. NOTIFIED NM MED NURSE, KATRINA, KATRINA AWARE AND VERBALIZED UNDERSTANDING. WILL CONTINUE TO MONITOR.
--- NOTE | 2018-12-12 17:22 | NUR ---
PATIENT LYING DOWN IN BED. NO DISTRESS NOTED. DENIES ANY PAIN AT THIS TIME. SCHEDULED MEDICATIONS DUE GIVEN. WILL CONTINUE TO MONITOR.
--- NOTE | 2018-12-12 19:20 | NUR ---
GAVE REPORT TO YOUTH CARE SPECIALIST NURSE FOR CONTINUITY OF CARE. PATIENT IN STABLE CONDITION.
[2018-12-12 20:00] VITALS: BP 137/83
--- NOTE | 2018-12-12 20:00 | NUR ---
SEEN PT AWAKE, ALERT AND ORIENTED. FAMILY JUST LEAVING. INITIAL ASSESSMENT DONE. VITAL SIGNS CHECKED. PT WANTS TO GO RESTROOM AND WANTS IV DISCONNECTED FOR NOW. PT SAID HE'S ABLE TO GO BY HIMSELF. CALL LIGHT W/IN REACH. INSTRUCTED TO CALL WHEN IN NEED. PT VERBALIZED UNDERSTANDING.
--- NOTE | 2018-12-12 21:20 | NUR ---
SEEN PT BACK IN BED. MEDICATIONS GIVEN ORDERED W/ TEACHINGS. PT VERBALIZED UNDERSTANDING. PT COMPLAINING OF 9/10 PAIN. WILL MEDICATE FOR PAIN ORDERED. PT REMINDED THAT HE WILL BE NOTHING BY MOUTH AFTER MIDNIGHT FOR ERCP. PT SAID "YES." CALL LIGHT W/IN REACH. INSTRUCTED TO CALL WHEN IN NEED.
[2018-12-13] MEDS: PIPERACILLIN/TAZOBACTAM 3.375 GM in DEXTROSE 5% 50 ML IV SCH ×5 (00:06→23:44)
--- NOTE | 2018-12-13 00:06 | NUR ---
SEEN PT SLEEPING COMFORTABLY. PT EASILY AWAKEN. IVPB ZOSYN GIVEN ORDERED. PT DENIES ANY NEEDS AT THIS TIME. CALL LIGHT W/IN REACH.
--- NOTE | 2018-12-13 02:20 | NUR ---
PT CALLED ASKING FOR SOMETHING FOR HIS STOMACH. PT GIVEN PEPCID IV THEN PT SAID HE WANTS TO GET UP TO THE BATHROOM. PT DISCONNECTED FROM HIS IV AND HE STOOD UP. PT'S GOWN WET. CHECKED IT AND LEELA WAS LEAKING. BEDDINGS CHANGED. PT GOT BACK FROM THE BATHROOM. GOWN CHANGED AND DRESSING OF LEELA CHANGED WELL. IV CONNECTED AND RESUMED ORDERED. PT WENT BACK TO SLEEP. CALL LIGHT W/IN REACH.
[2018-12-13 04:00] VITALS: BP 119/71
--- NOTE | 2018-12-13 04:00 | NUR ---
SEEN PT AWAKE. VITAL SIGNS CHECKED. INF INFUSING WELL. PT DENIES ANY DISCOMFORT AND NEEDS. LEELA DRESSING STILL CLEAN, DRY AND INTACT. WILL CONTINUE TO MONITOR. CALL LIGHT W/IN REACH.
[2018-12-13] MEDS: MORPHINE SULFATE 2 MG/ML SYR IVP PRN ×3 (05:59→21:35)
[2018-12-13] MEDS: NACL 0.9% 1,000 ML IV SCH ×3 (05:59→23:49)
--- NOTE | 2018-12-13 06:00 | NUR ---
PT ASKING SOMETHING FOR PAIN. PT'S PAIN LEVEL IS 9/10. PT MEDICATED W/ MORPHINE ORDERED. TEACHINGS PROVIDED. PT VERBALIZED UNDERSTANDING. IVF BAG CHANGED. LEELA DRAIN EMPTIED W/ 10ML SEROSANGUINEOUS OUTPUT. DRESSING STILL CLEAN,DRY AND INTACT. CALL LIGHT W/IN REACH.
[2018-12-13 06:21] LABS: ANION GAP 13.6 (8-16); CARBON DIOXIDE 25.2 mmol/L (21-32); CREATININE 0.8 mg/dL (0.7-1.3); POTASSIUM 3.8 mmol/L (3.5-5.1)
[2018-12-13 06:30] LABS: MAGNESIUM 1.9 mg/dL (1.8-2.4); PHOSPHORUS 3.1 mg/dL (2.5-4.9)
[2018-12-13 06:43] LABS: BASOPHILS % (AUTO) 0.4 % (0.0-2.0); EOSINOPHILS # (AUTO) 0.3 K/uL (0-0.4); EOSINOPHILS % (AUTO) 3.7 % (0.0-4.0); HEMATOCRIT 36.9 % (36-52); HEMOGLOBIN 12.5 g/dL (12.0-18.0); LYMPHOCYTES # (AUTO) 1.3 K/uL (2.0-11.5); LYMPHOCYTES % (AUTO) 16.5 % (20.5-51.1); MEAN CORPUSCULAR HEMOGLOBIN 31 pg (27-31); MEAN CORPUSCULAR HGB CONC 34 g/dL (33-37); MEAN CORPUSCULAR VOLUME 91.3 fL (80-94); MONOCYTES # (AUTO) 0.6 K/uL (0.8-1.0); MONOCYTES % (AUTO) 7.8 % (1.7-9.3); NEUTROPHILS # (AUTO) 5.5 K/uL (1.8-7.7); NEUTROPHILS % (AUTO) 71.6 % (42.2-75.2); PLATELET COUNT (AUTO) 288 K/uL (140-450); RED BLOOD CELL COUNT(AUTO) 4.04 MIL/uL (4.20-6.10); RED CELL DISTRIBUTION WIDTH 13.1 % (11.6-13.7); WHITE BLOOD COUNT (AUTO) 7.7 K/uL (4.8-10.8)
--- NOTE | 2018-12-13 06:58 | NUR ---
WILL ENDORSE CARE TO DAYSHIFT NURSE.
--- NOTE | 2018-12-13 06:58 | NUR ---
SEEN PT APPEARS COMFORTABLE. IVF INFUSING WELL. CALL LIGHT W/IN REACH. PT REMAIN NPO FOR NOW ERCP.
[2018-12-13 07:14] LABS: ALBUMIN 2.5 g/dL (3.4-5.0); BILIRUBIN,DIRECT 0.2 mg/dL (0.0-0.3); TOTAL BILIRUBIN 0.6 mg/dL (0.0-1.0)
--- NOTE | 2018-12-13 07:15 | NUR ---
RECEIVED REPORT FROM BOAT RIDE OPERATOR NURSE. PATIENT SITTING DOWN IN BED. NO DISTRESS NOTED. DENIES ANY PAIN. AAOX4, CALM, COOPERATIVE, SKIN COLOR APPROPRIATE TO ETHNICITY, WARM TO TOUCH. RESPIRATIONS EVEN, UNLABORED, ON ROOM AIR. HAS 4 ABD INCISIONS S/P LAP CORNEL DRESSING DRY AND INTACT. LEELA DRAIN ON RIGHT ABD SIDE, DRESSING CHANGED BY NIGHT RN IT IS LEAKING PER NIGHT RN REPORTS, WILL NOTIFY DR. MAR. REVIEWED PLAN OF CARE WITH PATIENT. PATIENT VERBALIZED UNDERSTANDING. SAFETY MEASURES IN PLACE, CALL LIGHT WITHIN REACH. WILL CONTINUE TO MONITOR.
[2018-12-13 08:00] VITALS: BP 123/67
[2018-12-13] MEDS: DOCUSATE SODIUM 100 MG GELCAP PO SCH ×2 (09:00→20:18)
[2018-12-13] MEDS: ALUMINUM HYD/MAG/SIMETHICONE 30 ML UDC PO SCH ×3 (09:19→17:22)
[2018-12-13] MEDS: SENNA 8.6 MG TAB PO SCH ×3 (09:20→17:22)
[2018-12-13] MEDS: LACTOBACILLUS RHAMNOSUS GG 1 EACH CAP PO SCH (09:20)
--- NOTE | 2018-12-13 09:33 | NUR ---
PATIENT SITTING IN BED TALKING WITH SON AT BEDSIDE. NO DISTRESS NOTED. SCHEDULED MEDICATIONS DUE GIVEN. COLACE NOT GIVEN D/T LOOSE STOOLS. HEPARIN NOT GIVEN D/T ERCP SCHEDULED LATER TODAY. RIGHT LEELA DRAIN SITE LEAKING, DRESSING CHANGED. PATIENT TOLERATED WELL. WILL CONTINUE TO MONITOR.
--- NOTE | 2018-12-13 10:30 | NUR ---
PATIENT AMBULATE TO BATHROOM AND BACK TO BED. WILL CONTINUE TO MONITOR.
[2018-12-13] MEDS ORDERED: LABETALOL 100 MG/20 ML VIAL ONE (11:58)
--- NOTE | 2018-12-13 12:00 | NUR ---
OR NURSES AT BEDSIDE TO TAKE PATIENT FOR ERCP. WILL CONTINUE TO MONITOR WHEN PATIENT RETURNS ON UNIT.
[2018-12-13] MEDS ORDERED: KETAMINE 500 MG/5 ML VIAL ONE (12:16)
[2018-12-13] MEDS ORDERED: MIDAZOLAM 2 MG/2 ML VIAL ONE (12:16)
[2018-12-13] MEDS ORDERED: HYDROmorphone 1 MG/ML AMP IVP PRN (12:20)
[2018-12-13] MEDS ORDERED: ONDANSETRON 4 MG/2 ML VIAL IVP PRN (12:20)
[2018-12-13] MEDS ORDERED: GLUCAGON 1 MG VIAL ONE (13:26)
--- NOTE | 2018-12-13 13:50 | NUR ---
PATIENT BACK FROM PACU. ERCP DONE WITH STENT PLACED D/T BILE LEAK. V/S STABLE. PAIN WITHIN TOLERABLE AT THIS TIME. ON ROOM AIR. WILL CONTINUE TO MONITOR.
--- NOTE | 2018-12-13 15:21 | NUR ---
PATIENT COMPLAINS OF PAIN S/P ERCP. MORPHINE GIVEN AT THIS TIME. WILL CONTINUE TO MONITOR.
[2018-12-13 16:00] VITALS: BP 125/76
--- NOTE | 2018-12-13 17:40 | NUR ---
RIGHT LEELA DRAIN LEAKING, DRESSING SOAKED. CHANGED DRESSING AND REINFORCED WITH ABD PAD. DR. GAMBOA ALREADY KNOWS ABOUT THE LEELA DRAIN LEAK AND PER DR. GAMBOA, HE NOTIFIED DR. MAR. WILL CONTINUE TO MONITOR.
--- NOTE | 2018-12-13 19:30 | NUR ---
RECEIVED REPORT FROM DAY RN. PT IS AAOX4, CALM, COOPERATIVE, SKIN COLOR APPROPRIATE TO ETHNICITY, WARM TO TOUCH. SON AND DAUGHTER ARE AT BEDSIDE. RESPIRATIONS EVEN, UNLABORED, ON ROOM AIR. HAS 4 ABD INCISIONS S/P LAP CORNEL ON 12/09 DRESSING DRY AND INTACT. LEELA DRAIN ON RIGHT ABD SIDE, DRESSING CHANGED BY DAY RN D/T LEAKING PER RN DRS ARE AWARE. REVIEWED PLAN OF CARE WITH PATIENT. PATIENT VERBALIZED UNDERSTANDING. SAFETY MEASURES IN PLACE, CALL LIGHT WITHIN REACH. WILL CONTINUE TO MONITOR.
[2018-12-13] MEDS: HYDROcodone/APAP 7.5/325 MG 1 TAB PO PRN (20:18)
--- NOTE | 2018-12-13 20:18 | NUR ---
MARIA GUADALUPE MEDICATIONS GIVEN ADMINISTERED NORCO FOR PAIN 6/10 OF ABDOMEN. ALL NEEDS MET AT THIS TIME. WILL CONTINUE TO MONITOR.
--- NOTE | 2018-12-13 21:35 | NUR ---
DR MAR IN TO SEE PATIENT AND REMOVED LEELA DRAIN. THERE WAS NO DRAINAGE IN LEELA AND DURING DAY SHIFT ONLY [address] REMOVED BAND-AIDS FROM OTHER [address] STATES TO PLACE DRY DRESSING ON LEELA SITE. CLEAN SURGICAL INCISION WITH BETADINE AND LEAVE OCCUPATIONAL THERAPY INSTRUCTOR. PT WITH [address] ISRAEL TO PUT VERSATIL. WOUNDS WERE CLEANED ABOVE. ADMINISTERED MORPHINE PRIOR PT RATES PAIN 10/10 AFTER LEELA DRAIN REMOVAL. CALL LIGHT IS WITHIN REACH. WILL CONTINUE TO MONITOR.
--- NOTE | 2018-12-13 22:00 | NUR ---
PATIENT TEMP 99.6 APPLIED COOLING MEASURES SUCH REMOVING BLANKETS AND TURNING ON AIR CONDITIONING. WILL RECHECK. ALL NEEDS MET AT THIS TIME. CALL LIGHT IS WITHIN REACH
--- NOTE | 2018-12-13 23:30 | NUR ---
VITAL SIGNS ARE WITHIN NORMAL LIMITS TEMP DOWN TO 97.9. ALL NEEDS MET AT THIS TIME. CALL LIGHT IS WITHIN REACH. WILL CONTINUE TO MONITOR.
[2018-12-14] VITALS: BP 129/71
--- NOTE | 2018-12-14 01:53 | NUR ---
PATIENT IS SLEEPING COMFORTABLY IN BED. CHEST RISE AND FALL. ALL NEEDS MET AT THIS TIME. CALL LIGHT IS WITHIN REACH.
--- NOTE | 2018-12-14 04:00 | NUR ---
PATIENT IS SLEEPING. CHEST RISE AND FALL. CALL LIGHT IS WITHIN REACH. WILL CONTINUE TO MONITOR.
[2018-12-14] MEDS: MORPHINE SULFATE 2 MG/ML SYR IVP PRN (05:36)
[2018-12-14] MEDS: PIPERACILLIN/TAZOBACTAM 3.375 GM in DEXTROSE 5% 50 ML IV SCH ×2 (05:40→12:04)
[2018-12-14 06:51] LABS: BASOPHILS % (AUTO) 0.3 % (0.0-2.0); EOSINOPHILS # (AUTO) 0.4 K/uL (0-0.4); EOSINOPHILS % (AUTO) 4.7 % (0.0-4.0); HEMATOCRIT 40.7 % (36-52); HEMOGLOBIN 13.7 g/dL (12.0-18.0); LYMPHOCYTES # (AUTO) 1.4 K/uL (2.0-11.5); LYMPHOCYTES % (AUTO) 17.8 % (20.5-51.1); MEAN CORPUSCULAR HEMOGLOBIN 31 pg (27-31); MEAN CORPUSCULAR HGB CONC 34 g/dL (33-37); MEAN CORPUSCULAR VOLUME 92.6 fL (80-94); MONOCYTES # (AUTO) 0.6 K/uL (0.8-1.0); MONOCYTES % (AUTO) 7.4 % (1.7-9.3); NEUTROPHILS # (AUTO) 5.5 K/uL (1.8-7.7); NEUTROPHILS % (AUTO) 69.8 % (42.2-75.2); PLATELET COUNT (AUTO) 332 K/uL (140-450); RED CELL DISTRIBUTION WIDTH 12.8 % (11.6-13.7); WHITE BLOOD COUNT (AUTO) 7.9 K/uL (4.8-10.8)
[2018-12-14 07:05] LABS: ANION GAP 13.7 (8-16); CARBON DIOXIDE 27.2 mmol/L (21-32); CREATININE 0.8 mg/dL (0.7-1.3); POTASSIUM 3.9 mmol/L (3.5-5.1)
--- NOTE | 2018-12-14 07:24 | NUR ---
GAVE BEDSIDE REPORT TO DAY RN. PT ENDORSED IN STABLE CONDITION.
--- NOTE | 2018-12-14 07:27 | NUR ---
RECEIVED PT FROM DIALYSIS BIOMED TECHNICIAN NURSEELLIE, PT IS AWAKE AND LYING ON THE BED WITH SIDE RAILS ARE UP AND CALL LIGHT WITHIN REACH, IV ;INE ON THE RT AC G. 20 WITH NS INFUSING AT 80ML/HR, PT IS S/P LAPAROSCOPIC CHOLECYSTECTOMY, [address] AND A DRESSING ON THE LEFT ABDOMINAL AREA, FOR THE LEELA BULB SITE THAT WAS PULLED, PT DENIES PAIN AND NO SIGN OF DISTRESS NOTED. WILL MONITOR PT.
[2018-12-14 07:55] LABS: PHOSPHORUS 4.3 mg/dL (2.5-4.9)
[2018-12-14 08:00] VITALS: BP 132/77
[2018-12-14] MEDS: DOCUSATE SODIUM 100 MG GELCAP PO SCH (08:53)
[2018-12-14] MEDS: SENNA 8.6 MG TAB PO SCH ×3 (08:53→17:00)
[2018-12-14] MEDS: LACTOBACILLUS RHAMNOSUS GG 1 EACH CAP PO SCH (08:53)
[2018-12-14] MEDS: ALUMINUM HYD/MAG/SIMETHICONE 30 ML UDC PO SCH ×2 (08:54→12:05)
--- NOTE | 2018-12-14 08:55 | NUR ---
PT IS AWAKE AND SEATED ON THE BED, ORAL AND SUBQ MEDICATIONS WERE GIVEN, PARAMETER CHECKED AND PT TOLERATED IT. WILL MONITOR PT.
--- NOTE | 2018-12-14 10:15 | NUR ---
PT IS AWAKE AND WAS ASSISTED TO THE BATHROOM, STEADY GAIT. NO SIGN OF DISTRESS NOTED AND PT DENIES PAIN. WILL MONITOR PT.
--- NOTE | 2018-12-14 12:05 | NUR ---
PT IS AWAKE AND ORAL AND IV MEDICATIONS WERE GIVEN AND PT TOLERATED IT. NO SIGN OF DISTRESS NOTED AND DWILL MONITOR PT.
[2018-12-14] MEDS ORDERED: IBUP-2218 PO (15:00)
--- NOTE | 2018-12-14 15:09 | NUR ---
12/14/18 RD FOLLOW UP COMPLETED PLEASE REFER TO NUTRITION ASSESSMENT UNDER CARE ACTIVITY FOR ESTIMATED NUTRITIONAL NEEDS. 1. CONTINUE REGULAR DIET 2. RD WILL FOLLOW UP WITHIN 5-7 DAYS; LOW RISK RHIANNA KIMBALL RD
[2018-12-14 15:54] VITALS: BP 130/81
--- NOTE | 2018-12-14 17:20 | NUR ---
DISCHARGED PT VIA WHEELCHAIR TO HOME ACCOMPANIED BY FAMILY, DISCHARGE TEACHINGS AND INSTRUCTIONS GIVEN AND PT VERBALIZED UNDERSTANDING, IV LINE AND ARM BAND REMOVED AND PT IS STABLE AT THIS TIME.
== END 2018-12-14 17:35 | disposition home or self-care (01) | DRG 263 ==
LOC: MED 18:05 → MTU 23:44
PROVIDERS: ADMIT General Practice; ATTEND General Practice
PROC: 0FT44ZZ Resection of Gallbladder, Percutaneous Endoscopic Approach (ICD-10-PCS; principal; 2018-12-10 08:30)
PROC: 0F798DZ Dilation of Common Bile Duct with Intraluminal Device, Via Natural or Artificial Opening Endoscopic (ICD-10-PCS; 2018-12-13)
PROC: BF101ZZ Fluoroscopy of Bile Ducts using Low Osmolar Contrast (ICD-10-PCS; 2018-12-13)
DX: K80.00 Calculus of gallbladder with acute cholecystitis without obstruction (principal); E43 Unspecified severe protein-calorie malnutrition; K65.3 Choleperitonitis; E83.41 Hypermagnesemia; K83.8 Other specified diseases of biliary tract; E87.1 Hypo-osmolality and hyponatremia; Z68.25 Body mass index [BMI] 25.0-25.9, adult; K29.70 Gastritis, unspecified, without bleeding
CPT/HCPCS: 36415; 71045; 74330; 76705; 78445; 80048; 80053; 80076; 80305; 81003; 82150; 83036; 83605; 83690; 83735; 83880; 84100; 84439; 84443; 84484; 85025; 85610; 85730; 87081; 88304; 93005; 96365; 96375; 99285; C1727; C1769; C1887; J0330; J1100; J1170; J1610; J1644; J1885; J2250; J2270; J2405; J2543; J2704; J2710; J3010; J3490; J7030; J7042; J7060; Q0092